=== PATIENT | female | born 1960 | race Caucasian/White ===

== ENCOUNTER 2018-01-06 16:27 | Emergency (ER) | END 2018-01-07 00:04 | disposition home or self-care (01) ==

== ENCOUNTER 2018-06-15 08:42 | Emergency (ER) | payer OTHER ==
[~2018-06-15] VITALS: Ht 162.6 cm; Wt 72.9 kg
[~2018-06-15 08:42] MED LIST: DICL100G37 TOP; IBUP800T48 PO; MELO7.5T38 PO; TRAM50TA2 PO
[2018-06-15 08:44] VITALS: Ht 162.6 cm; Wt 72.9 kg
[2018-06-15] MEDS ORDERED: KETOROLAC 30 MG INJ IM STA (09:15)
[2018-06-15] MEDS ORDERED: IBUP-1542 PO (10:12)
[2018-06-15] MEDS ORDERED: TRAM50TA2 PO (10:12)
--- NOTE | 2018-06-15 11:16 | ERD ---
ER Documentation Chief Complaint Chief Complaint right shoulder pain/injury due to mechanical fall HPI 57-year-old female presents with right shoulder pain after throwing a trash 2 days ago. She has no restricted range of motion or deficits. She has had injury, neck pain, chest pain or shortness of breath, fevers, additional symptoms. ROS All systems reviewed and are negative except as per history of present illness. Medications Home Meds Active Scripts Tramadol HCl (Tramadol HCl) 50 Mg Tablet, 50 MG PO Q4 PRN for PAIN, #15 TAB Prov:RYANNE IBARRA MD 06/15/18 Ibuprofen* (Motrin*) 600 Mg Tab, 600 MG PO Q6, #20 TAB Prov:RYANNE IBARRA MD 06/15/18 Tramadol HCl (Tramadol HCl) 50 Mg Tablet, 50 MG PO Q4 PRN for PAIN, #20 TAB Prov:EDWINA SARMIENTO PA-C 03/30/18 Meloxicam* (Meloxicam*) 7.5 Mg Tablet, 7.5 MG PO DAILY, #30 TAB Prov:EDWINA SARMIENTO PA-C 03/30/18 Diclofenac Sodium* (Voltaren* Gel) 1% -100 Gm Gel, 2 GM TOP QID, #1 TUB Prov:EDWINA SARMIENTO PA-C 03/30/18 Ibuprofen* (Motrin*) 800 Mg Tab, 800 MG PO Q6H PRN for PAIN AND OR ELEVATED TEMP, #30 TAB Prov:SAIGE BROWN MD 01/06/18 Allergies Allergies: Coded Allergies: No Known Allergy (Unverified , 01/06/18) PMhx/Soc Medical and Surgical Hx: pt denies Surgical Hx History of Surgery: No Hx Neurological Disorder: No Hx Respiratory Disorders: No Hx Cardiac Disorders: Yes (htn) Hx Psychiatric Problems: No Hx Miscellaneous Medical Probl: No Hx Alcohol Use: No Hx Substance Use: No Hx Tobacco Use: No Smoking Status: Never smoker FmHx Family History: No diabetes, No coronary disease, No other Physical Exam Vitals Vital Signs Date Temp Pulse Resp B/P (MAP) Pulse Ox O2 O2 Flow FiO2 Time Delivery Rate 06/15/18 97.7 66 18 128/71 100 08:44 (90) Physical Exam Const: No acute distress Head: Atraumatic Eyes: Normal Conjunctiva ENT: Normal External Ears, Nose and Mouth. Neck: Full range of motion. No meningismus. Resp: Clear to auscultation bilaterally Cardio: Regular rate and rhythm, no murmurs Abd: Soft, non tender, non distended. Normal bowel sounds Skin: No petechiae or rashes Back: No midline or flank tenderness Ext: No cyanosis, or edema Neur: Awake and alert Psych: Normal Mood and Affect Results 24 hrs Current Medications Medications Dose Sig/Sylvie Start Time Status Last (Trade) Ordered Route PRN Stop Time Admin Dose Reason Admin Ketorolac 30 mg ONCE STAT 06/15/18 DC 06/15/18 Tromethamine IM 09:15 09:24 (Toradol) 06/15/18 09:17 Procedures/MDM X-ray right shoulder 3V Interpreted by me: Bones: No fracture Joints: No dislocation Foreign body: None. Impression-normal right shoulder with incidental findings of 3 mm nodule right upper lobe. Chest X-ray 1V Interpreted by me: Soft Tissue: No acute abnormalities Bones: No acute abnormalities Mediastinum/Cardiac Silhouette/Lungs: No acute abnormalities. Impression- right upper lobe 3 mm granuloma. Patient presents with right shoulder pain after throwing a trash 2 days ago. She likely has rotator cuff strain. She has no signs of fracture, dislocation, septic arthritis, ischemia, additional concerning signs or symptoms. Pain is reproducible and does not represent cardiac chest pain. Patient will be treated with ibuprofen, tramadol, primary care follow-up and return precautions. Patient was advised to use shoulder or do range of motion exercises to prevent stiffness. She should return for fevers, redness, shortness of breath, new worsening symptoms with primary care doctor. The patient was stable with no new complaints during the ER course. Clinically, there is no current evidence to suggest meningitis, sepsis, acute abdomen, pneumonia, stroke, acute coronary syndrome, pulmonary embolism, aortic dissection or any other emergent condition appearing to require further evaluation or hospitalization. Patient counseled regarding my diagnostic impression and care plan. Prior to discharge all questions answered. Pt agrees with treatment plan and understands strict return precautions. Pt is instructed to follow up with primary care provider within 24- 48 hours. Precautionary instructions provided including instructions to return to the ER if not improving or for any worsening or changing symptoms or concerns. Departure Diagnosis: Primary Impression: Shoulder injury Encounter type: initial encounter Laterality: right Qualified Codes: S49.91XA - Unspecified injury of right shoulder and upper arm, initial encounter Condition: Stable Patient Instructions: Shoulder Sprain Referrals: NO PRIMARY,CARE PHYSICIAN (PCP) Additional Instructions: probablamente tendonitis o musculos . cheque con hernandez doctor primario o orthopedico pars mas evaulation. Cheque otro vez con hernandez doctor primario en el proximo yadav or regresa para mas o nueva simptomas. RYANNE IBARRA MD Jun 15, 2018 11:16
[2018-06-15 11:29] VITALS: BP 121/70; PULSE 71; RESP 18
== END 2018-06-15 11:28 | disposition home or self-care (01) ==
LOC: FTE 08:42
DX: S49.91XA Unspecified injury of right shoulder and upper arm, initial encounter (principal); I10 Essential (primary) hypertension; X58.XXXA Exposure to other specified factors, initial encounter; Y92.9 Unspecified place or not applicable
CPT/HCPCS: 71046; 73030; 96372; J1885; Z7502

== ENCOUNTER 2018-07-02 02:23 | Emergency (ER) | payer OTHER ==
[~2018-07-02] VITALS: Ht 165.1 cm; Wt 74.2 kg
[~2018-07-02 02:23] MED LIST changes: +IBUP-1542 PO
[2018-07-02 02:34] VITALS: Ht 165.1 cm; Wt 74.2 kg
--- NOTE | 2018-07-02 03:24 | ERD ---
ER Documentation Chief Complaint Chief Complaint CP rad to L arm x30 minutes w/ mild SOB, nausea HPI This is a 58-year-old woman who woke up today with complaints of left arm pain and anterior chest pain, pain x30 minutes and she had difficulty sleeping after she woke up. She denies precipitating or alleviating factors and denies prior similar episodes. She denies shortness of breath, no calf or leg swelling, no cough, no vomiting or diarrhea, no headache or blurry vision ROS All systems reviewed and are negative except as per history of present illness. Medications Home Meds Active Scripts Ibuprofen* (Motrin*) 600 Mg Tab, 600 MG PO Q8 PRN for PAIN AND/OR INFLAMMATION, #30 TAB Prov:PHYLLIS MARCELINO MD 07/02/18 Tramadol HCl (Tramadol HCl) 50 Mg Tablet, 50 MG PO Q4 PRN for PAIN, #20 TAB Prov:EDWINA SARMIENTO PA-C 03/30/18 Discontinued Scripts Tramadol HCl (Tramadol HCl) 50 Mg Tablet, 50 MG PO Q4 PRN for PAIN, #15 TAB Prov:RYANNE IBARRA MD 06/15/18 Ibuprofen* (Motrin*) 600 Mg Tab, 600 MG PO Q6, #20 TAB Prov:RYANNE IBARRA MD 06/15/18 Meloxicam* (Meloxicam*) 7.5 Mg Tablet, 7.5 MG PO DAILY, #30 TAB Prov:EDWINA SARMIENTO PA-C 03/30/18 Diclofenac Sodium* (Voltaren* Gel) 1% -100 Gm Gel, 2 GM TOP QID, #1 TUB Prov:EDWINA SARMIENTO PA-C 03/30/18 Ibuprofen* (Motrin*) 800 Mg Tab, 800 MG PO Q6H PRN for PAIN AND OR ELEVATED TEMP, #30 TAB Prov:SAIGE BROWN MD 01/06/18 Allergies Allergies: Coded Allergies: No Known Allergy (Unverified , 07/02/18) PMhx/Soc None History of Surgery: No Hx Neurological Disorder: No Hx Respiratory Disorders: No Hx Cardiac Disorders: Yes (htn) Hx Psychiatric Problems: No Hx Miscellaneous Medical Probl: No Hx Alcohol Use: No Hx Substance Use: No Hx Tobacco Use: No Smoking Status: Never smoker FmHx Family History: No diabetes Physical Exam Vitals Vital Signs Date Temp Pulse Resp B/P (MAP) Pulse Ox O2 O2 Flow FiO2 Time Delivery Rate 07/02/18 97.8 69 16 113/67 100 Room Air 05:05 (82) 07/02/18 65 17 120/86 100 Room Air 04:10 (97) 07/02/18 70 22 109/75 100 Room Air 02:52 (86) 07/02/18 97.4 72 20 131/70 100 02:34 (90) Physical Exam GENERAL: Well-developed, well-nourished, well-hydrated, in no apparent distress, looks nontoxic in appearance HEENT: Moist mucous membranes, pink conjunctiva, no cervical spine tenderness or step-off deformities, no goiter, no jaundice or icterus, extraocular movements intact without pain. No submandibular induration, and no pharyngeal erythema NEURO: Alert and oriented 3, cranial nerves II through XII intact bilaterally, pupils equal round reactive to light, no focal deficits or facial asymmetry, sensation intact distally Strength 5/5 in upper and lower extremities bilaterally CARDIAC: Regular rate and rhythm, no murmurs rubs or gallops LUNGS: Clear bilaterally no wheezing crackles or stridor ABDOMEN: Soft nontender, no guarding, no rigidity, no rebound, no psoas sign no obturator sign. Normoactive bowel sounds SKIN: Warm and dry to touch, no abrasions, contusions, or hematomas, no lacerations, no ecchymosis, no target lesions, and without ulcers EXTREMITIES: No clubbing cyanosis or edema, calves are bilaterally symmetrical, no Homans sign, no popliteal cord sign. Distal pulses equal and bilateral PSYCH: Normal affect without agitation or irritability Result Diagram: 07/02/18 0346 07/02/18 0346 Results 24 hrs Laboratory Tests Test 07/02/18 03:46 White Blood Count 5.9 10^3/ul Red Blood Count 4.25 10^6/ul Hemoglobin 12.5 g/dl Hematocrit 36.9 % Mean Corpuscular Volume 86.8 fl Mean Corpuscular Hemoglobin 29.4 pg Mean Corpuscular Hemoglobin Concent 33.9 g/dl Red Cell Distribution Width 12.9 % Platelet Count 250 10^3/UL Mean Platelet Volume 9.3 fl Immature Granulocytes % 0.200 % Neutrophils % 47.2 % Lymphocytes % 42.0 % Monocytes % 8.2 % Eosinophils % 1.5 % Basophils % 0.9 % Nucleated Red Blood Cells % 0.0 /100WBC Immature Granulocytes # 0.010 10^3/ul Neutrophils # 2.8 10^3/ul Lymphocytes # 2.5 10^3/ul Monocytes # 0.5 10^3/ul Eosinophils # 0.1 10^3/ul Basophils # 0.1 10^3/ul Nucleated Red Blood Cells # 0.0 10^3/ul Sodium Level 142 mmol/L Potassium Level 3.6 mmol/L Chloride Level 109 mmol/L Carbon Dioxide Level 22 mmol/L Anion Gap 11 Blood Urea Nitrogen 23 mg/dl Creatinine 0.60 mg/dl Est Glomerular Filtrat Rate mL/min > 60 mL/min Glucose Level 104 mg/dl Calcium Level 9.7 mg/dl Total Bilirubin 0.4 mg/dl Direct Bilirubin 0.00 mg/dl Indirect Bilirubin 0.4 mg/dl Aspartate Amino Transf (AST/SGOT) 35 IU/L Alanine Aminotransferase (ALT/SGPT) 30 IU/L Alkaline Phosphatase 95 IU/L Troponin I < 0.012 ng/ml Total Protein 7.4 g/dl Albumin 4.1 g/dl Globulin 3.30 g/dl Albumin/Globulin Ratio 1.24 Lipase 119 U/L Current Medications Medications Dose Sig/Sylvie Start Time Status Last (Trade) Ordered Route PRN Stop Time Admin Dose Reason Admin Sodium 500 ml @ Q1H STAT 07/02/18 DC 07/02/18 Chloride 500 mls/hr IV 03:42 07/02/18 04:00 04:41 Ondansetron 4 mg ONCE STAT 07/02/18 DC 07/02/18 HCl (Zofran IV 03:42 07/02/18 04:00 Inj) 03:43 Ketorolac 15 mg ONCE STAT 07/02/18 DC 07/02/18 Tromethamine IV 03:42 07/02/18 04:00 (Toradol) 03:43 Procedures/MDM IV line was established patient was placed on hall monitor rhythm strip revealed a sinus rhythm at about 70 bpm with upright P and T waves. Patient was afebrile EKG performed, read by me: 69 bpm, normal sinus rhythm, normal axis, no acute ST segment changes, narrow QRS complex, with good R-wave progression in precordial leads. Chest X-ray 1V Interpreted by me: Soft Tissue: No acute abnormalities Bones: No acute abnormalities Mediastinum/Cardiac Silhouette/Lungs: No acute abnormalities I administered 500 cc normal saline IV, Toradol 15 mg IV, Zofran 4 mg IV CBC and electrolytes were normal, liver function tests were normal, troponin was negative Differential diagnoses considered, included but not limited to acute coronary syndrome, pulmonary embolism, aortic dissection, abdominal aortic aneurysm, sepsis, stroke, meningitis, encephalitis, pneumonia, appendicitis, cholecystitis, bowel obstruction, pyelonephritis, nephrolithiasis, cystitis, as well as metabolic, hematologic, and electrolyte abnormalities. As well as abscess, cellulitis, fractures, and dislocations. Patient feels much better at this time, and vital signs are normal, symptoms have improved. I did give strict instructions to return to the ED if symptoms continue or worsen, patient will otherwise follow-up with primary care physician. Patient understood instructions and agreed to plan. Disclaimer: Inadvertent spelling and grammatical errors are likely due to EHR/dictation software use and do not reflect on the overall quality of patient care. Also, please note that the electronic time recorded on this note does not necessarily reflect the actual time of the patient encounter. Departure Diagnosis: Primary Impression: Chest pain Chest pain type: unspecified Qualified Codes: R07.9 - Chest pain, unspe cified Additional Impression: Insomnia Insomnia type: primary Qualified Codes: F51.01 - Primary insomnia Condition: PHYLLIS Batista MD July 02, 2018 03:24
[2018-07-02] MEDS ORDERED: ONDANSETRON 4 MG INJ IV STA (03:42)
[2018-07-02] MEDS ORDERED: KETOROLAC 15 MG INJ IV STA (03:42)
[2018-07-02] MEDS ORDERED: SOD CHLORIDE 0.9% 500 ML IV STA (03:42)
[2018-07-02] MEDS ORDERED: IBUP-1542 PO (04:40)
[2018-07-02 05:05] VITALS: BP 113/67; PULSE 69; RESP 16
== END 2018-07-02 05:10 | disposition home or self-care (01) ==
LOC: E/R 02:23
DX: R07.9 Chest pain, unspecified (principal); I10 Essential (primary) hypertension; F51.01 Primary insomnia
CPT/HCPCS: 36415; 71045; 80053; 83690; 84484; 85025; 93005; 96374; 96375; J1885; J2405; J7040; Z7502; Z7610